=== PATIENT | male | born 1985 | race Caucasian/White ===

== ENCOUNTER 2021-08-30 11:14 | Emergency (ER) | payer SELFPAY ==
[~2021-08-30] VITALS: Ht 170.2 cm; Wt 72.0 kg
[2021-08-30 11:19] VITALS: BP 147/90
[2021-08-30] MEDS ORDERED: LORAZEPAM 1MG TABLET PO ONE (12:15)
[2021-08-30 13:08] LABS: *AMPHETAMINES SCREEN URINE NEGATIVE (NEGATIVE); *BARBITURATES SCREEN URINE NEGATIVE (NEGATIVE); *BENZODIAZEPINES SCREEN URINE NEGATIVE (NEGATIVE); *COCAINE SCREEN URINE NEGATIVE (NEGATIVE); METHADONE URINE SCREEN NEGATIVE (NEGATIVE); OPIATES URINE SCREEN NEGATIVE (NEGATIVE)
[2021-08-30 13:09] LABS: CANNABINOID URINE SCREEN NEGATIVE (NEGATIVE); PHENCYCLIDINE URINE SCREEN NEGATIVE (NEGATIVE)
[2021-08-30 13:24] LABS: BASOPHILS % 0.5 % (0.0-2.0); EOSINOPHILS % 3.6 % (0.0-5.0); HEMATOCRIT. 45.9 % (42.0-52.0); HEMOGLOBIN. 15.4 g/dL (14.0-18.0); MEAN CORPUSCULAR HEMOGLOBIN 28.8 pg (28.0-32.0); MEAN PLATELET VOLUME 7.7 fl (7.4-10.4); MONOCYTES % 6.8 % (2.0-8.0); NEUTROPHILS % 69.1 % (40.0-76.0); PLATELET 362 x1000/uL (130-400); RED BLOOD CELL COUNT 5.34 mill/uL (4.7-6.1); RED CELL DISTRIBUTION WIDTH 14.3 % (11.6-14.6)
[2021-08-30 13:32] LABS: CHLORIDE 110 mEq/L (98-107)
[2021-08-30] MEDS ORDERED: HYDR-3735 MT (15:42)
== END 2021-08-30 16:16 | disposition home or self-care (01) ==
LOC: ER 11:50
DX: F41.0 Panic disorder [episodic paroxysmal anxiety] (principal); R42 Dizziness and giddiness
CPT/HCPCS: 36415; 71045; 80053; 80305; 82962; 84484; 85025; 85379; 93005; 99285